=== PATIENT | female | born 1960 | race Caucasian/White ===

== ENCOUNTER 2017-06-06 18:22 | Emergency (ER) | payer BC, OTHER ==
[~2017-06-06] VITALS: Ht 157.5 cm; Wt 52.2 kg
[2017-06-06 18:46] VITALS: Ht 157.5 cm; Wt 52.2 kg
[2017-06-06] MEDS ORDERED: HYDROmorphONE 1 MG/ML SYG IV STA (19:46)
[2017-06-06] MEDS ORDERED: SOD CHLORIDE 0.9% 1,000 ML IV STA (19:46)
[2017-06-06] MEDS ORDERED: ONDANSETRON 4 MG INJ IV STA (19:46)
--- NOTE | 2017-06-06 20:00 | ERA ---
ER Documentation Chief Complaint Date/Time DATE: 06/06/17 TIME: 19:58 Chief Complaint sent from clinic r/o diverticulitis. c/o left lower ap +n/v /10 pain HPI This is a 56-year-old female who complains of pain in her left lower quadrant for the past 2 days. She says this is just like her prior episodes of pain back in February 2017 when she was diagnosed with diverticulitis. The patient has nausea vomiting 1 is nonbilious nonbloody. She also has had no diarrhea but is passing some slightly bloody stools. She said this happened last time she had diverticulitis as well. No back pain no fever no hematuria dysuria ROS All systems reviewed and are negative except as per history of present illness. Medications Home Meds Active Scripts Hydrocodone/Acetaminophen ([place] 10-325 Tablet) 1 Each Tablet, 1 TAB PO Q6H Y for PAIN, #20 TAB Prov:MIRIAM OROZCOS A. DO 06/06/17 Metronidazole* (Flagyl*) 500 Mg Tablet, 500 MG PO TID for 10 Days, TAB Prov:LEPAOLAOSJACYSTOLOS A. DO 06/06/17 Ciprofloxacin Hcl* (Ciprofloxacin Hcl*) 500 Mg Tablet, 500 MG PO BID for 10 Days , TAB Prov:BRIOSJACYSTOLOS A. DO 06/06/17 Allergies Allergies: Coded Allergies: No Known Allergy (Unverified , 06/06/17) FmHx Family History: No coronary disease Physical Exam Vitals Vital Signs Date Time Temp Pulse Resp B/P Pulse Ox O2 Delivery O2 Flow Rate FiO2 06/06/17 22:02 77 18 107/60 98 Nasal Cannula 2.0 06/06/17 20:02 82 18 98/64 98 Room Air 06/06/17 18:46 98.3 84 18 101/69 98 Physical Exam Const: Well-developed, well-nourished Head: Atraumatic, normocephalic Eyes: Normal Conjunctiva, PERRLA, EOMI, normal sclera, no nystagmus ENT: Normal External Ears, Nose and Mouth, moist mucus membranes. Neck: Full range of motion. No meningismus, no lymphadenopathy. Resp: Clear to auscultation bilaterally, no wheezing, rhonchi, rales Cardio: Regular rate and rhythm, no murmurs, S1 S2 present Abd: Soft, moderate left lower quadrant tenderness, non distended. Normal bowel sounds, no guarding or rebound, no pulsitile abdominal masses or bruits Skin: No petechiae or rashes, no ecchymosis , no maculopapular rash Back: No midline or flank tenderness Ext: No cyanosis, or edema, FROM x 4, normal inspection, neurovascularly intact x 4 Neur: Awake and alert, STR 5/5 x 4, sensation intact x 4, no focal findings, cerebellum intact Psych: Normal Mood and Affect Result Diagram: 06/06/17195406/06/171954 Results 24 hrs Laboratory Tests Test 06/06/17 19:55 White Blood Count 10.910^3/ul Red Blood Count 4.4610^6/ul Hemoglobin 13.7g/dl Hematocrit 40.3% Mean Corpuscular Volume 90.4fl Mean Corpuscular Hemoglobin 30.7pg Mean Corpuscular Hemoglobin Concent 34.0g/dl Red Cell Distribution Width 12.5% Platelet Count 24001^3/UL Mean Platelet Volume 10.9fl Neutrophils % 71.5% Lymphocytes % 19.3% Monocytes % 8.0% Eosinophils % 0.5% Basophils % 0.3% Nucleated Red Blood Cells % 0.0/100WBC Neutrophils # 7.810^3/ul Lymphocytes # 2.110^3/ul Monocytes # 0.910^3/ul Eosinophils # 0.110^3/ul Basophils # 0.010^3/ul Nucleated Red Blood Cells # 0.010^3/ul Sodium Level 147mmol/L Potassium Level 3.8mmol/L Chloride Level 106mmol/L Carbon Dioxide Level 25mmol/L Anion Gap 20 Blood Urea Nitrogen 15mg/dl Creatinine 0.66mg/dl Glucose Level 120mg/dl Calcium Level 9.9mg/dl Total Bilirubin 0.6mg/dl Direct Bilirubin 0.00mg/dl Indirect Bilirubin 0.6mg/dl Aspartate Amino Transf (AST/SGOT) 21IU/L Alanine Aminotransferase (ALT/SGPT) 30IU/L Alkaline Phosphatase 86IU/L Total Protein 8.2g/dl Albumin 4.7g/dl Globulin 3.50g/dl Albumin/Globulin Ratio 1.34 Current Medications Medications (Trade) Dose Ordered Sig/Dolly Route PRN Reason Start Time Stop Time Status Last Admin Dose Admin Sodium Chloride (NS) 1,000 ml @ 1,000 mls/hr Q1H STAT IV 06/06/17 19:46 06/06/17 20:45 DC 06/06/17 19:57 Hydromorphone HCl (Dilaudid) 1 mg ONCE STAT IV 06/06/17 19:46 06/06/17 19:47 DC 06/06/17 19:56 Ondansetron HCl (Zofran Inj) 4 mg ONCE STAT IV 06/06/17 19:46 06/06/17 19:47 DC 06/06/17 19:56 IV Flush 10 ml 10 ml STK-MED ONCE .ROUTE 06/06/17 21:06 06/06/17 21:07 DC 06/06/17 21:25 Sodium Chloride (NS) 100 ml @ ud STK-MED ONCE .ROUTE 06/06/17 21:06 06/06/17 21:07 DC 06/06/17 21:25 Iohexol (Omnipaque 300mg/ ml) 150 ml STK-MED ONCE .ROUTE 06/06/17 21:06 06/06/17 21:07 DC 06/06/17 21:25 Procedures/MDM PROCEDURE: CT ABDOMEN/PELVIS WITH CONTRAST CLINICAL INDICATION: 56-year-old female with left lower quadrant pain. TECHNIQUE: The study was performed utilizing a [employer] VCT 64-slice CT scanner. Direct axial sections were obtained through the abdomen and pelvis with the use of 80 cc of Omnipaque-300 nonionic intravenous contrast material. Sagittal and coronal reformations were obtained. One or more of the following dose reduction techniques were utilized: automated exposure control, adjustment of the mA and/or kV according to patient's size or use of iterative reconstruction technique. The images were reviewed on a PACS workstation. CTD/ vol = 9.7 mGy; Total Exam DLP = 477.0 mGy-cm. COMPARISON: None. FINDINGS: There is trace left basilar subsegmental atelectasis. There is no evidence for significant pleural effusion. The liver has a normal size and contour. There is a cyst identified within the left lobe of the liver on axial image 3-22 measuring approximately 6 x 7 x 7 mm. No intrahepatic nor extrahepatic biliary ductal dilatation is seen. The gallbladder demonstrates no wall thickening nor pericholecystic fluid. No biliary stones are evident. The pancreas is without areas of abnormal attenuation or contrast enhancement. This spleen is identified and has a normal size without abnormal density or contrast enhancement. The adrenal glands are unremarkable. The kidneys are functional bilaterally without abnormal density. No hydroureteronephrosis nor nephroureterolithiasis is evident. The urinary bladder contains urine. There is no evidence for bowel obstruction. Multiple diverticula are seen within the descending and sigmoid colon with mild surrounding inflammatory changes within the sigmoid colon consistent with acute diverticulitis. The appendix is visualized and is without edema or surrounding inflammatory reaction. The uterus is unremarkable. There is trace pelvic free fluid phleboliths are seen within the pelvis. The aortoiliac vessels are without aneurysmal dilatation. The osseous structures are intact. Surgical clips are noted within the right inguinal soft tissues. IMPRESSION: 1. Acute sigmoid diverticulitis. 2. Solitary 6 x 7 mm left hepatic cyst. 3. Right inguinal soft tissue surgical clips. .Sage Dudley MD, MD Date Time Electronically viewed and signed by .Sage Dudley MD, MD on 06/06/2017 22:37 .M/ CC: HALINA OROZCO DO No evidence of abscess or perforation. The patient states she feels better. Reviewed diet care for diverticulitis. Discharge home with [facility] and [facility] Diagnosis: Primary Impression: Diverticulitis Qualified Code: K57.33 - Diverticulitis of large intestine without perforation or abscess with bleeding Condition: Stable HALINA OROZCO DO Jun 06, 2017 20:00
[2017-06-06 20:12] LABS: BASOPHILS % 0.3 % (0.0-2.0); EOSINOPHILS # 0.1 10^3/ul (0.0-0.5); EOSINOPHILS % 0.5 % (0.0-7.0); HEMATOCRIT 40.3 % (37.0-47.0); HEMOGLOBIN 13.7 g/dl (12.0-16.0); LYMPHOCYTES # 2.1 10^3/ul (0.8-2.9); LYMPHOCYTES % 19.3 % (15.0-51.0); MEAN CORPUSCULAR HEMOGLOBIN 30.7 pg (29.0-33.0); MEAN CORPUSCULAR VOLUME 90.4 fl (82.0-101.0); MEAN PLATELET VOLUME 10.9 fl (7.4-10.4); MONOCYTE # 0.9 10^3/ul (0.3-0.9); NEUTROPHIL # 7.8 10^3/ul (1.6-7.5); NEUTROPHILS % 71.5 % (39.0-77.0); PLATELET COUNT 236 10^3/UL (140-415); RED BLOOD COUNT 4.46 10^6/ul (4.20-5.40); RED CELL DISTRIBUTION WIDTH 12.5 % (11.5-14.5); WHITE BLOOD COUNT 10.9 10^3/ul (4.8-10.8)
[2017-06-06 20:30] LABS: ALBUMIN 4.7 g/dl (3.3-4.9); ALBUMIN/GLOBULIN RATIO 1.34; BILIRUBIN,INDIRECT 0.6 mg/dl (0-1.1); BILIRUBIN,TOTAL 0.6 mg/dl (0.2-1.3); CALCIUM 9.9 mg/dl (8.4-10.2); CREATININE 0.66 mg/dl (0.44-1.00); POTASSIUM 3.8 mmol/L (3.5-5.1); TOTAL PROTEIN 8.2 g/dl (6.1-8.1)
[2017-06-06] MEDS ORDERED: IOHEXOL 300MG/ML 150 ML BTL ONE (21:06)
[2017-06-06] MEDS ORDERED: SOD CHLORIDE 0.9% 100 ML ONE (21:06)
--- NOTE | 2017-06-06 22:37 | RADRPT ---
PROCEDURE: CT ABDOMEN/PELVIS WITH CONTRAST CLINICAL INDICATION: 56-year-old female with left lower quadrant pain. TECHNIQUE: The study was performed utilizing a [employer] VCT 64-slice CT scanner. Direct axia l sections were obtained through the abdomen and pelvis with the use of 80 cc of Omnipaque-300 nonio [place] intravenous contrast material. Sagittal and coronal reformations were obtained. One or more of t he following dose reduction techniques were utilized: automated exposure control, adjustment of the mA and/or kV according to patient's size or use of iterative reconstruction technique. The images w ere reviewed on a PACS workstation. CTD/vol = 9.7 mGy; Total Exam DLP = 477.0 mGy-cm. COMPARISON: None. FINDINGS: There is trace left basilar subsegmental atelectasis. There is no evidence for significant pleural effusion. The liver has a normal size and contour. There is a cyst identified within the left lobe of the liver on axial image 3-22 measuring approximately 6 x 7 x 7 mm. No intrahepatic nor extrahep atic biliary ductal dilatation is seen. The gallbladder demonstrates no wall thickening nor perichol ecystic fluid. No biliary stones are evident. The pancreas is without areas of abnormal attenuation or contrast enhancement. This spleen is identified and has a normal size without abnormal density o r contrast enhancement. The adrenal glands are unremarkable. The kidneys are functional bilaterally without abnormal density. No hydroureteronephrosis nor nephroureterolithiasis is evident. The urinar y bladder contains urine. There is no evidence for bowel obstruction. Multiple diverticula are seen within the descending and sigmoid colon with mild surrounding inflammatory changes within the sigmoid colon consistent with acute diverticulitis. The appendix is visualized and is without edema or surrounding inflammatory reaction. The uterus is unremarkable. There is trace pelvic free fluid phleboliths are seen within the pelvis. The aortoiliac vessels are without aneurysmal dilatation. T he osseous structures are intact. Surgical clips are noted within the right inguinal soft tissues. IMPRESSION: 1. Acute sigmoid diverticulitis. 2. Solitary 6 x 7 mm left hepatic cyst. 3. Right inguinal soft tissue surgical clips. .Sage Dudley MD, MD Date Time Electronically viewed and signed by .Sage Dudley MD, on 06/06/2017 22:37 .[place]
[2017-06-06] MEDS ORDERED: CIPR500T4 PO (22:50)
[2017-06-06] MEDS ORDERED: HYDR-902 PO (22:50)
[2017-06-06] MEDS ORDERED: METR500T PO (22:50)
[2017-06-06 23:15] VITALS: BP 104/53; PULSE 78; RESP 18; TEMP 97.8
== END 2017-06-06 23:15 | disposition home or self-care (01) ==
LOC: E/R 18:22
DX: K57.33 Diverticulitis of large intestine without perforation or abscess with bleeding (principal)
CPT/HCPCS: 36415; 74177; 80053; 85025; 96374; 96375; 99285; J1170; J2405; J7030; Q9967